=== PATIENT | male | born 1960 | race Caucasian/White ===

== ENCOUNTER 2017-05-08 12:49 | Emergency (ER) | payer OTHER ==
[2017-05-08 12:55] VITALS: BP 154/98; PULSE 67; TEMP 98.6; BMI 29.8
--- NOTE | 2017-05-08 13:58 | PDOC ---
History of Present Illness - General Chief Complaint: Injury Stated Complaint: RT SHOULDER PAIN Time Seen by Provider: 05/08/17 13:33 History Source: Patient Exam Limitations: No Limitations - History of Present Illness Initial Comments: 05/08/17 14:15 Was at work today, shoveling some heavy gravel when he felt an acute onset of pain to his right shoulder. States has difficulty forward flexing and side flexing and feels is swollen. No numbness or tingling to hand, no other injury. Occurred: reports: just prior to arrival, this morning Severity: reports: mild Pain Location: reports: upper extremity (right shoudler ) Modifying Factors: improves with: None Loss of Consciousness: no loss of consciousness Associated Symptoms (Fall): denies symptoms Past History - Travel Traveled outside of the country in the last 30 days: No Close contact w/someone who was outside of country & ill: No - Past Medical History Allergies/Adverse Reactions: Allergies Allergy/AdvReac Type Severity Reaction Status Date / Time No Known Allergies Allergy Verified 05/08/17 12:52 Home Medications: Ambulatory Orders Alprazolam [Xanax] 0.5 mg PO TID 05/08/17 Losartan Potassium [Cozaar -] 25 mg PO DAILY 05/08/17 Zolpidem Tartrate [Ambien] 10 mg PO HS 05/08/17 HTN: Yes Psychiatric Problems: Yes (insomnia, anxiety) - Immunization History Immunization Up to Date: Yes - Psycho/Social/Smoking Cessation Hx Anxiety: Yes Suicidal Ideation: No Smoking History: Current some day smoker Number of Cigarettes Smoked Daily: 2 Information on smoking cessation initiated: No Hx Alcohol Use: No Drug/Substance Use Hx: No Review of Systems - Review of Systems Able to Perform ROS?: Yes Is the patient limited Bhutanese proficient: Yes Constitutional: Yes: Symptoms Reported, See HPI HEENTM: No: Symptoms Reported Respiratory: No: Symptoms reported Musculoskeletal: Yes: Symptoms Reported, See HPI, Joint Pain, Joint Swelling Integumentary: No: Symptoms Reported All Other Systems: Reviewed and Negative *Physical Exam - Vital Signs Last Vital Signs Temp Pulse Resp BP Pulse Ox 98.6 F 67 18 154/98 98 05/08/17 12:52 05/08/17 12:52 05/08/17 12:52 05/08/17 12:52 05/08/17 12:52 - Physical Exam General Appearance: Yes: Nourished, Appropriately Dressed, Apparent Distress HEENT: positive: EOMI, MROIS, Normal ENT Inspection, TMs Normal, Pharynx Normal Respiratory/Chest: positive: Lungs Clear, Normal Breath Sounds Musculoskeletal: negative: Normal Inspection Extremity: positive: Normal Capillary Refill, Normal Inspection. negative: Normal Range of Motion (Jere motion to 30 forward flexion and side flexion with tenderness reproduced against resistance. 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 NML intact, Fully Oriented, Alert, Normal Response, Motor Strength / ED Treatment Course - RADIOLOGY Radiology Studies Ordered: Category Date Time Status SHOULDER-RIGHT [RAD] Stat Radiology 05/08/17 13:34 Ordered Progress Note - Progress Note Progress Note: Right shoulder strain, will follow up with Orth O, sling provided *DC/Admit/Observation/Transfer Diagnosis at time of Disposition: Right shoulder strain Qualifiers: Encounter type: initial encounter Qualified Code(s): S46.911A - Strain of unspecified muscle, fascia and tendon at shoulder and upper arm level, right arm , initial encounter - Discharge Dispostion Disposition: HOME Condition at time of disposition: Stable Admit: No - Referrals Referrals: STAFF,NOT ON [Primary Care Provider] - Jayesh Ayala MD [Staff Physician] - - Patient Instructions Printed Discharge Instructions: DI for Shoulder Sprain Additional Instructions: Rest, ice to area on and off for 15 minutes 4-6 times a day Avoid heavy lifting or exercise until pain and swelling is resolved or until further directed Keep area highly elevated to reduce swelling Use splints/Hamilton wrap as directed Followup with orthopedist in one to 2 days if not improving, if significantly improved may wait one week for followup with orthopedist May use ibuprofen 2-200 mg tablets every 6 hours as needed for pain - Post Discharge Activity Work/School Note: Back to Work
== END 2017-05-08 14:17 | disposition home or self-care (01) ==
LOC: JERFT 12:49
DX: S46.911A Strain of unspecified muscle, fascia and tendon at shoulder and upper arm level, right arm, initial encounter (principal); X50.0XXA Overexertion from strenuous movement or load, initial encounter; Y93.H1 Activity, digging, shoveling and raking; Y92.89 Other specified places as the place of occurrence of the external cause; Y99.0 Civilian activity done for income or pay; I10 Essential (primary) hypertension; F41.9 Anxiety disorder, unspecified; G47.00 Insomnia, unspecified; F17.210 Nicotine dependence, cigarettes, uncomplicated
CPT/HCPCS: 73030-TC-RT; 99281-25